=== PATIENT | female | born 1945 | race Caucasian/White ===

== ENCOUNTER → 2019-08-18 | Outpatient (CLI) | payer MEDICARE ==
--- NOTE | 2019-08-18 12:07 | XR ---
EXAMINATION TYPE: XR chest 2V DATE OF EXAM: 08/18/2019 COMPARISON: None HISTORY: 74 year-old female shortness of breath, R06.02 TECHNIQUE: Frontal and lateral views FINDINGS: The cardiomediastinal silhouette, aorta, and pulmonary vasculature are within normal limits. Mild int erstitial prominence has a chronic appearance. Otherwise, lungs and pleural spaces are clear. IMPRESSION: Chronic-appearing changes, no definite acute cardiopulmonary process.
--- NOTE | 2019-08-18 13:01 | US ---
EXAMINATION TYPE: US thyroid st tissue head/neck DATE OF EXAM: 08/18/2019 COMPARISON: NONE CLINICAL HISTORY: E04.1 Thyroid nodule. Hx of thyroid nodule GLAND SIZE: Right Lobe: 4.0 x 1.3 x 1.1 cm Overall Parenchyma: homogenous Left Lobe: 3.9 x 1.2 x 1.2 cm Overall Parenchyma: homogeneous Isthmus Thickness: .2 cm NODULES RIGHT: # of nodules measured on right: 0 LEFT: # of nodules measured on left: 1 1. .3. X .2 x .2 cm echogenic solid nodule at the lower pole with well-defined margins; . This nod ule is wider than tall and shows no intranodular vascularity. Prior size No prior ISTHMUS: # of nodules measured in the isthmus: 0 Bilateral neck scanned, no evidence of lymphadenopathy. IMPRESSION: Nonspecific subcentimeter nodule left thyroid lobe.
== END | disposition home or self-care (01) ==
LOC: RADUSWWP 11:05
PROVIDERS: ATTEND Internal Medicine
DX: E04.1 Nontoxic single thyroid nodule (principal); R06.02 Shortness of breath
CPT/HCPCS: 71046; 76536

== ENCOUNTER → 2019-09-30 | Outpatient (CLI) | payer MEDICARE ==
--- NOTE | 2019-09-30 11:12 | US ---
EXAMINATION TYPE: US abdomen complete DATE OF EXAM: 09/30/2019 COMPARISON: NONE CLINICAL HISTORY: R10.11 ABD PAIN. Intermittent RUQ and right back pain, nausea, indigestion; prior r enal stones and stomach ulcer EXAM MEASUREMENTS: Liver Length: 16.2 cm Gallbladder Wall: 0.1 cm CBD: 0.3 cm Spleen: 8.1 cm Right Kidney: 9.3 x 5.1 x 3.4 cm Left Kidney: 9.1 x 4.8 x 4.5 cm Pancreas: hyperechoic Liver: fatty liver as is hyperechoic to right renal cortex with possible area of fatty focal sparing in left lobe and in caudate lobe, attenuated posteriorly Gallbladder: small mobile gallstone is seen Evidence for sonographic [place]'s sign: no CBD: wnl Spleen: size is wnl; multiple hyperechoic foci noted throughout parenchyma suggests splenic granulom as Right Kidney: No hydronephrosis or masses seen Left Kidney: No hydronephrosis or masses seen Upper IVC: wnl Abd Aorta: wnl Visualized pancreas unremarkable. Visualized liver markedly heterogeneously hyperechoic. Evaluation f or focal masses suboptimal due to the heterogeneity. No surrounding ascites. Technologist gutierrez some vague hypoechoic areas deep likely reflecting focal fatty sparing. There is 3 mm hyperechoic focus mo bile per technologist during real-time scanning without shadowing likely small stone. No pericholecys tic fluid or abnormal gallbladder wall thickening. Punctate calcifications throughout the spleen cons istent with product of old granulomatous disease. No hydronephrosis noted bilaterally. IMPRESSION: Single gallstone without secondary ultrasound evidence for acute cholecystitis. Suspect p rominent diffuse fatty infiltration of liver, correlate clinically and with liver lab values. No acut e finding is evident.
== END | disposition home or self-care (01) ==
LOC: RADUSWWP 10:09
PROVIDERS: ATTEND Internal Medicine
DX: K80.20 Calculus of gallbladder without cholecystitis without obstruction (principal)
CPT/HCPCS: 76700

== ENCOUNTER 2020-06-05 13:04 | Emergency (ER) | payer MEDICARE ==
[2020-06-05 13:13] VITALS: BP 149/84; PULSE 67; RESP 17; TEMP 97.9
--- NOTE | 2020-06-05 13:55 | ED ---
General Adult HPI - General Chief complaint: Extremity Injury, Upper Stated complaint: Fall,Lft arm pain Time Seen by Provider: 06/05/20 13:34 Source: patient, RN notes reviewed Mode of arrival: wheelchair Limitations: no limitations - History of Present Illness Initial comments: Patient is a pleasant 75-year-old female presenting to the emergency Department with complaints of left arm pain. Patient states earlier she kicked a branch and slipped and fell. Patient cut herself with a left arm. Patient complains of discomfort, severe of her left arm since that time. Patient states she is very nervous about being the emergency department and not having her vaccine for coronavirus. Patient is requesting discharge. Patient states she has an appo intment at 2:30 with orthopedics. Patient denies head injury or any other area of injury other than her left arm. Discomfort is severe left forearm and mild left upper arm. Patient does hold her arm near the wrist with her right arm. No history of chronic arm problems. Patient is refusing x-rays at this time and requesting discharge. - Related Data Allergies Allergy/AdvReac Type Severity Reaction Status Date / Time clindamycin Allergy Rash/Hives Verified 06/05/20 13:15 Penicillins Allergy Rash/Hives Verified 06/05/20 13:15 Sulfa (Sulfonamide Allergy Itching Verified 06/05/20 13:15 Antibiotics) Review of Systems ROS Statement: Those systems with pertinent positive or pertinent negative responses have been documented in the HPI. ROS Other: All systems not noted in ROS Statement are negative. 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 hip arthroplasty Past Psychological History: No Psychological Hx Reported Smoking Status: Never smoker Past Alcohol Use History: None Reported Past Drug Use History: None Reported General Exam Limitations: no limitations General appearance: alert, in no apparent distress Head exam: Present: atraumatic Eye exam: Present: normal appearance Neck exam: Present: normal inspection. Absent: tenderness Respiratory exam: Present: normal lung sounds bilaterally Cardiovascular Exam: Present: regular rate, normal rhythm Expanded Peripheral pulses: 2+: Radial (L) GI/Abdominal exam: Present: soft. Absent: tenderness Extremities exam: Present: tenderness (Moderate tenderness and swelling left distal forearm. Mild tenderness proximal forearm and minimal tenderness of the upper arm. Sensation intact. Cap refill less than 2 seconds. Good strength with corrective therapy aide.), other (Discomfort with range of motion left arm) Back exam: Present: normal inspection. Absent: vertebral tenderness Neurological exam: Present: alert. Absent: motor sensory deficit Psychiatric exam: Present: normal affect, normal mood Skin exam: Present: normal color Course Vital Signs 06/05/20 13:05 Temperature 97.9 F Pulse Rate 67 Respiratory 17 Rate Blood Pressure 149/84 O2 Sat by Pulse 98 Oximetry Procedures - Orthopedic Splinting/Casting Injury #1 Side: left Upper Extremity Injury Location: long arm Upper Extremity Immobilizer: posterior splint Medical Decision Making - Medical Decision Making Patient strongly advised x-ray and is aware that she could have a broken bone. Patient states [facility] and does not want to be in the emergency department secondary to her fears. Disposition Clinical Impression: Arm injury Disposition: HOME SELF-CARE Instructions (If sedation given, give patient instructions): Arm Fracture in Adults (ED) Additional Instructions: Please follow-up with orthopedics immediately as planned. [id number] Tylenol or Motrin as needed. Return for unable to have x-rays, missing appointment, worsening symptoms or any other concerns. It is possible that he could have fractured or broken arm or other injury that we are unaware of at this time. Is patient prescribed a controlled substance at d/c from ED?: No Referrals: Roger Hawkins MD [Primary Care Provider] - 1-2 days Time of Disposition: 13:54
== END 2020-06-05 14:57 | disposition home or self-care (01) ==
LOC: EC 13:04
DX: S49.92XA Unspecified injury of left shoulder and upper arm, initial encounter (principal); G47.30 Sleep apnea, unspecified; Z99.89 Dependence on other enabling machines and devices; Z88.0 Allergy status to penicillin; Z88.1 Allergy status to other antibiotic agents; Z88.2 Allergy status to sulfonamides; W01.0XXA Fall on same level from slipping, tripping and stumbling without subsequent striking against object, initial encounter
CPT/HCPCS: 29105; 99283

== ENCOUNTER → 2020-07-20 | Outpatient (CLI) | payer MEDICARE ==
--- NOTE | 2020-07-20 14:42 | XR ---
EXAMINATION TYPE: XR ribs LT DATE OF EXAM: 07/20/2020 COMPARISON: Chest x-ray August 18, 2019 HISTORY: Fall injury 6 weeks ago with persistent pain TECHNIQUE: A frontal and oblique images left-sided ribs. FINDINGS: [place] osseous structures are demineralized. No acute or subacute displaced fracture of the left-sided ribs. Visualized left lung shows chronic parenchymal changes without focal suspicious opa city or pneumothorax. Overlying soft tissue is unremarkable. IMPRESSION: No acute or subacute displaced left-sided rib fracture.
== END | disposition home or self-care (01) ==
LOC: RADXRMAIN 12:52
PROVIDERS: ATTEND Internal Medicine
DX: S29.9XXA Unspecified injury of thorax, initial encounter (principal); W19.XXXA Unspecified fall, initial encounter

== ENCOUNTER → 2021-01-03 | Outpatient (CLI) | payer MEDICARE ==
[2021-01-03 20:50] LABS: African American GFR (CKD) 99.6 (60.0-200.0); Albumin 4.2 g/dL (3.8-4.9); Albumin/Globulin Ratio 1.35 (1.60-3.17); Anion Gap 12.1 mmol/L (4.00-12.00); BUN/Creat Ratio 18.57 Ratio (12.00-20.00); C Reactive Protein 1.7 mg/dL (0.00-0.80); Calcium 9.9 mg/dL (8.7-10.3); Carbon Dioxide 26.9 mmol/L (21.6-31.8); Globulin 3.1 g/dL (1.6-3.3); Potassium 4.4 mmol/L (3.5-5.5); Total Bilirubin 0.6 mg/dL (0.30-1.20); Total Protein 7.3 g/dL (6.2-8.2)
== END | disposition home or self-care (01) ==
LOC: LABWHC1 10:31
PROVIDERS: ATTEND Pediatrics
DX: E55.9 Vitamin D deficiency, unspecified (principal); R53.83 Other fatigue; E78.5 Hyperlipidemia, unspecified; M19.90 Unspecified osteoarthritis, unspecified site; E03.9 Hypothyroidism, unspecified; R73.01 Impaired fasting glucose; D64.9 Anemia, unspecified; K90.9 Intestinal malabsorption, unspecified; M18.0 Bilateral primary osteoarthritis of first carpometacarpal joints
CPT/HCPCS: 36415; 80053; 82306; 82626; 83036; 83090; 83516; 85384; 86140

== ENCOUNTER → 2021-01-30 | Outpatient (CLI) | payer MEDICARE ==
--- NOTE | 2021-01-30 11:34 | P.STRESS ---
- Stress Test Note Stress Test Results/Findings: Exam Performed: stress test Exam Date: 01/30/21 Reason for Exam: CHEST PAIN, ANGINA PECTORIS Height: 4 ft 10 in Weight: 71.8 kg Protocol: WICHO Stage: 3 Duration of Exercise: 7:00 Resting Heart Rate: 75 Resting Blood Pressure: 131/71 Maximum Achieved Heart Rate: 143 Maximum Achieved Blood Pressure: 185/64 85% PMHR: 125 100% PMHR: 147 METS: 9.7 Technologist Comment: Stress Test Results/Findings: Baseline 12-lead EKG shows sinus rhythm normal VA narrow QRS normal ST segments Patient exercised on a Wicho protocol for 7 minutes achieving a peak heart rate of 143 beats a minute. Normal blood pressure response No ECG evidence for ischemia No arrhythmias Impression average exercise capacity No ECG evidence for ischemia
--- NOTE | 2021-01-31 10:13 | EST ---
Stress Test Results/Findings: Exam Performed: stress test Exam Date: 01/30/21 Reason for Exam: CHEST PAIN, ANGINA PECTORIS Height: 4 ft 10 in Weight: 71.8 kg Protocol: WICHO Stage: 3 Duration of Exercise: 7:00 Resting Heart Rate: 75 Resting Blood Pressure: 131/71 Maximum Achieved Heart Rate: 143 Maximum Achieved Blood Pressure: 185/64 85% PMHR: 125 100% PMHR: 147 METS: 9.7 Technologist Comment: Stress Test Results/Findings: Baseline 12-lead EKG shows sinus rhythm normal NM narrow QRS normal ST segments Patient exercised on a Wicho protocol for 7 minutes achieving a peak heart rate of 143 beats a minute. Normal blood pressure response No ECG evidence for ischemia No arrhythmias Impression average exercise capacity No ECG evidence for ischemia MTDD
== END | disposition home or self-care (01) ==
LOC: RADNMMAIN 08:58
PROVIDERS: ATTEND Internal Medicine
DX: I20.9 Angina pectoris, unspecified (principal)
CPT/HCPCS: 93017

== ENCOUNTER → 2021-05-22 | Outpatient (CLI) | payer MEDICARE ==
--- NOTE | 2021-05-22 09:08 | US ---
EXAMINATION TYPE: US liver DATE OF EXAM: 05/22/2021 COMPARISON: NONE CLINICAL HISTORY: R74.01 ELEVATION OF LEVELS OF LIVER TRANSAMINASE. Abnormal labs EXAM MEASUREMENTS: Liver Length: 15.4 cm Gallbladder Wall: 0.2 cm CBD: 0.3 cm Right Kidney: 8.3 x 4.8 x 3.8 cm Pancreas: wnl Liver: wnl Gallbladder: Echogenic foci without shadowing seen in neck of gallbladder, measuring 0.3 x 0.4 x 0.3 cm Evidence for sonographic [place]'s sign: No CBD: wnl Right Kidney: No hydronephrosis or masses seen Echogenic non-shadowing foci seen in gallbladder neck. IMPRESSION: 1. Cholelithiasis.
== END | disposition home or self-care (01) ==
LOC: RADUSWWP 08:20
PROVIDERS: ATTEND Pediatrics
DX: K80.20 Calculus of gallbladder without cholecystitis without obstruction (principal); R74.01 Elevation of levels of liver transaminase levels
CPT/HCPCS: 76705

== ENCOUNTER → 2023-04-25 | Outpatient (CLI) | payer MEDICARE ==
--- NOTE | 2023-04-27 19:55 | CT ---
EXAMINATION TYPE: CT sinus wo con DATE OF EXAM: 04/25/2023 COMPARISON: None HISTORY: 78-year-old female J01.[address] DLP: 606 mGycm Automated exposure control for dose reduction was used. TECHNIQUE: Noncontrast axial views of the paranasal sinuses were obtained. Coronal and sagittal refor matted images were obtained. FINDINGS: PARANASAL SINUSES: There is complete opacification of the right maxillary sinus hyperdensity material. The left maxillary sinus, bilateral ethmoid air cells, sphenoid sinuses, and frontal sinuses are well pneumatized. There is no air-fluid level. Reactive phil- osteogenesis is not seen. There is no destruction of the osseous lau of the paranasal sinuses. THE NASAL CAVITY: The right maxillary infundibulum appears excessively narrowed, refer to coronal image 31. This may co ntribute to the sinus opacification. Rightward nasal septal deviation. Benign basal ganglionic calcifications. Mild atherosclerotic calcifications in the carotid siphons. M oderate confluent white matter hypodensities in both cerebral hemispheres suggesting changes of chron ic small vessel ischemic disease. Mastoid air cells and middle ear cavities are well pneumatized. Reformatted images confirm above findings. IMPRESSION: 1. Severe chronic right maxillary sinus disease with complete opacification. There is high density ma terial likely representing inspissated fluid. 2. The right maxillary infundibulum appears excessively narrowed and this may account for the sinus o pacification. 3. Rightward nasal septal deviation.
== END | disposition home or self-care (01) ==
LOC: RADCTMAIN 14:08
PROVIDERS: ATTEND Otolaryngology
DX: J34.89 Other specified disorders of nose and nasal sinuses (principal); J01.00 Acute maxillary sinusitis, unspecified; J34.2 Deviated nasal septum; J32.0 Chronic maxillary sinusitis
CPT/HCPCS: 70486

== ENCOUNTER → 2024-03-12 | Outpatient (CLI) | payer MEDICARE ==
--- NOTE | 2024-03-12 13:44 | BD ---
EXAMINATION TYPE: Axial Bone Density DATE OF EXAM: 03/12/2024 CLINICAL HISTORY: 79 years old Female. ICD-10 CODE: M89.9 DISORDER OF BONE , Additional History: Height: 59 Weight: 167 FRAX RISK QUESTIONS: Alcohol (3 or more units per day): no Family History (Parent hip fracture): no Glucocorticoids (More than 3mos): no (Ex: prednisone, prednisolone, methylprednisolone, dexamethasone, and hydrocortisone). History of Fracture in Adulthood: yes Secondary Osteoporosis: 1. Type 1 Diabetes: no 2. Hyperthyroidism: no 3. Menopause before 45: yes 4. Malnutrition: no 5. Chronic liver disease: no Rheumatoid Arthritis: no Current Tobacco Use: no RISK FACTORS HISTORY OF: History of Wrist Fracture: left wrist When: 3 years ago Surgery to Spine/Hip(right/left)/Wrist (right/left): right hip When: 2011 MEDICATIONS: Thyroid Medications: synthroid How Lon years EXAM MEASUREMENTS: Bone mineral densitometry was performed using the tidy System. Bone mineral density as measured about the Lumbar spine is: ----- L1-L4(G/cm2): 0.915 T Score Values are as follows: ----- L1: -1.6 ----- L2: -3.0 ----- L3: -2.3 ----- L4: -2.1 ----- L1-L4: -2.2 Z Score Values are as follows: ----- L1: -0.2 ----- L2: -1.6 ----- L3: -0.9 ----- L4: -0.7 ----- L1-L4: -0.8 Bone mineral density : baseline Bone mineral density about the L hip (g/cm2): 0.714 T Score values are as follows: -----L Neck: -2.7 -----L Total: -2.3 Z Score values are as follows: -----L Neck: -0.9 -----L Total: -0.7 Bone mineral density : baseline FRAX%s: The graph provided illustrates a 26.9% chance for a major osteoporotic fx and a 8.9% chance f or the hips probability for fx in 10 years time. IMPRESSION: Osteoporosis (T Score less than -2.5) femoral neck level left hip. There is increased fracture risk and therapy is usually indicated based on age. Re-Screen 1-2 years. NOTE: T-SCORE=SD OF THE YOUNG ADULT MEAN. [facility], , 03/12/2024 1:42 PM
--- NOTE | 2024-03-12 13:51 | MM ---
Reason for Exam: Screening (asymptomatic). Last mammogram was performed 4 year(s) and 6 month(s) ago. Patient History: Menarche at age 15. Postmenopausal. Estrogen, from age 18 until age 26. Paternal aunt had breast cancer. Risk Values: Quynh 5 year model risk: 1.3%. NCI Lifetime model risk: 2.4%. Prior Study Comparison: 02/27/2018 Bilateral Screening Mammogram, [facility]. 09/22/2019 Bilateral Screening Mammogram, [facility]. Tissue Density: The breasts are heterogeneously dense, which may obscure small masses. Findings: Analyzed By CAD. There is suggestion of possible new obscured 16 mm mass in the subareolar region of the right breast on CC image 20. Overall Assessment: Incomplete: need additional imaging evaluation, BI-RAD 0 Management: Diagnostic Breast Ultrasound of the right breast. Targeted ultrasound right breast. Patient should continue monthly self-breast exams. A clinical breast exam by your physician is recommended on an annual basis. This exam should not preclude additional follow-up of suspicious palpable abnormalities. Note on Quynh scores and lifetime risk: 1. A Quynh score greater than 3% is considered moderate risk. If this is the case, consider specialist referral to assess eligibility for a risk reducing agent. 2. If overall lifetime risk for the development of breast cancer is 20% or higher, the patient may qualify for future screening with alternating mammogram and breast MRI. [facility], , 03/12/2024 1:47 PM. Electronically signed and approved by: Ellis Dunne M.D.
== END | disposition home or self-care (01) ==
LOC: RADMAMWWP 12:53
PROVIDERS: ATTEND Internal Medicine Geriatric Medicine
DX: Z12.31 Encounter for screening mammogram for malignant neoplasm of breast (principal); Z80.3 Family history of malignant neoplasm of breast; R92.333 Mammographic heterogeneous density, bilateral breasts; M89.9 Disorder of bone, unspecified; M81.8 Other osteoporosis without current pathological fracture
CPT/HCPCS: 77063; 77067; 77080

== ENCOUNTER → 2024-03-15 | Outpatient (CLI) | payer MEDICARE ==
[2024-03-15 10:04] LABS: African American GFR (CKD) 84 (>60 ml/min/1.73 sqM); Blood Urea Nitrogen 15 mg/dL (7-17); Non-African American GFR(CKD) 73 (>60 ml/min/1.73 sqM)
--- NOTE | 2024-03-15 11:52 | CT ---
EXAMINATION TYPE: CT facial bones w con DATE OF EXAM: 03/15/2024 COMPARISON: Sinus CT April 25, 2023 CLINICAL INDICATION: Female, 79 years old with history of J01.81 acute recurring sinusitis; PHH, acut e recurring sinusitis TECHNIQUE: CT scan of the facial bones is performed with IV Contrast, patient injected with 100 mL of Isovue [address] DLP: 583.7 mGycm Automated exposure control for dose reduction was used. TECHNIQUE: CT scan of the facial bones is performed with IV contrast, axial images are obtained, emory nal reformatted images are also reviewed. Patient injected with 100 cc of Isovue-300 FINDINGS: Persistent completely opacified right maxillary sinus with hyperdense material. No bony jaime truction. Remainder of the paranasal sinuses are clear. Visualized portion of mastoid air cells show no abnormal opacification. Bilateral aphakia is redemons trated. Visualized brain parenchyma is unremarkable. IMPRESSION: Unchanged right maxillary sinus disease. No suspicious enhancement or bony destruction. C onsider ENT evaluation. [facility], , 03/15/2024 11:50 AM
== END | disposition home or self-care (01) ==
LOC: RADCTMAIN 09:08
PROVIDERS: ATTEND Internal Medicine Geriatric Medicine
DX: J01.81 Other acute recurrent sinusitis (principal); J32.0 Chronic maxillary sinusitis
CPT/HCPCS: 82565; 84520; 70487; 36415; Q9967

== ENCOUNTER → 2024-03-23 | Outpatient (CLI) | payer MEDICARE ==
--- NOTE | 2024-03-23 15:50 | MM ---
Reason for Exam: Additional evaluation requested from abnormal screening. Last screening mammogram was performed less than 1 month ago. Patient History: Menarche at age 15. Postmenopausal. Estrogen, from age 18 until age 26. Paternal aunt had breast cancer. Risk Values: Quynh 5 year model risk: 1.3%. NCI Lifetime model risk: 2.4%. Tissue Density: Right: There are scattered areas of fibroglandular density. Findings: Analyzed By CAD. Area of concern/asymmetry compresses out on spot compression imaging. No suspicious masses, calcifications or distortions. Overall Assessment: Benign, BI-RAD 2 Management: Screening Mammogram of both breasts in 1 year. Results were given to the patient verbally at the time of exam. Patient should continue monthly self-breast exams. A clinical breast exam by your physician is recommended on an annual basis. This exam should not preclude additional follow-up of suspicious palpable abnormalities. Note on Quynh scores and lifetime risk: 1. A Quynh score greater than 3% is considered moderate risk. If this is the case, consider specialist referral to assess eligibility for a risk reducing agent. 2. If overall lifetime risk for the development of breast cancer is 20% or higher, the patient may qualify for future screening with alternating mammogram and breast MRI. [facility], , 03/23/2024 3:46 PM. Electronically signed and approved by: Myron Song DO
== END | disposition home or self-care (01) ==
LOC: RADUSWWP 15:04
PROVIDERS: ATTEND Internal Medicine Geriatric Medicine
DX: R92.2 Inconclusive mammogram (principal); R92.8 Other abnormal and inconclusive findings on diagnostic imaging of breast; R92.323 Mammographic fibroglandular density, bilateral breasts; Z78.0 Asymptomatic menopausal state; Z80.3 Family history of malignant neoplasm of breast
CPT/HCPCS: 77065; G0279; 77061